=== PATIENT | male | born 1975 | race Caucasian/White ===

== ENCOUNTER 2022-08-22 08:03 | Outpatient (CLI) | payer OTHER ==
[2022-08-27] MEDS ORDERED: CRESTOR20 MG PO (08:46)
== END 2022-08-22 08:05 | disposition home or self-care (01) ==
LOC: MRI 08:03
PROVIDERS: ATTEND Specialist
DX: K80.10 Calculus of gallbladder with chronic cholecystitis without obstruction (principal)
CPT/HCPCS: 74181

== ENCOUNTER 2022-08-30 05:12 | Day surgery (SDC) | payer OTHER ==
[~2022-08-30] VITALS: Ht 175.3 cm; Wt 97.5 kg
[~2022-08-30 05:12] MED LIST: CRESTOR20 MG PO
== END 2022-08-30 13:25 | disposition home or self-care (01) ==
LOC: CIR.AMB 05:12
PROVIDERS: ATTEND Specialist
DX: K80.10 Calculus of gallbladder with chronic cholecystitis without obstruction (principal); R59.0 Localized enlarged lymph nodes; K42.0 Umbilical hernia with obstruction, without gangrene; E78.5 Hyperlipidemia, unspecified; F17.210 Nicotine dependence, cigarettes, uncomplicated; Z20.822 Contact with and (suspected) exposure to COVID-19